=== PATIENT | female | born 1955 | race Caucasian/White ===

== ENCOUNTER 2019-09-29 09:11 | Emergency (ER) | payer MEDICARE ==
[2019-09-29] MEDS: Diphtheria/Tetanus Toxoids,Adult (Td) 0.5 ML SDV IM ONE (10:45)
--- NOTE | 2019-09-29 13:37 | ER ---
REASON FOR EMERGENCY ROOM VISIT: Dog bite, right hand. HISTORY: This 64-year-old woman comes in after having sustained a superficial dog bite to her right hand 2 days ago. Apparently, her 2 [place] were fighting and she reached into separate them and was inadvertently bit on the right hand at the base of the thumb just above the wrist. She has noticed some mild increasing swelling and pain along with erythema at the puncture site. She is unaware of her last tetanus booster. PAST MEDICAL HISTORY: Reviewed. MEDICATIONS: Aspirin. ALLERGIES: PENICILLIN (ITCHING). PHYSICAL EXAMINATION: VITAL SIGNS: She is afebrile. GENERAL: No acute distress. MUSCULOSKELETAL: On examination of her right hand, she has a punctate puncture site with a small eschar over it with overlying induration and erythema measuring 2-3 cm in diameter at the most. There is no fluctuance or expressible purulence at this time. The site of the puncture is at the proximal carpometacarpal joint area just beyond the wrist along the dorsal aspect of this area. IMPRESSION: Dog bite with cellulitis, right hand. PLAN: She received a tetanus booster. She was given a prescription for Keflex 500 mg p.o. q.i.d. x5 days. I advised her to soak it in warm soapy water using bactericidal soap such as liquid Dial. Ibuprofen and Tylenol are okay for discomfort. All questions were answered. She knows that should her symptoms worsen that she should return for another evaluation. BART/SHIRLENE /[id number]
== END 2019-09-29 10:53 | disposition home or self-care (01) ==
LOC: LB.ED 09:11
DX: S61.451A Open bite of right hand, initial encounter (principal); L03.113 Cellulitis of right upper limb; Z23 Encounter for immunization; W54.0XXA Bitten by dog, initial encounter
CPT/HCPCS: 90471; 90714; 99283; 99283-25